=== PATIENT | female | born 1955 | race African-American/Black ===

== ENCOUNTER 2016-11-22 23:31 | Emergency (ER) | payer OTHER ==
[~2016-11-22 23:31] MED LIST: ACET500CAP PO; ALLEGRA180 PO; AMB10 PO; ASAB PO; BEN25 PO; CRESTOR10 PO; FIBERCON PO; FISH-EPA1000 MG PO; FLONASE NAS; HYZAAR1 TAB PO; LIPITOR20 PO; LOP50 PO; MULTIPLE VIT PO; NEUR100 PO; NORCO1 TA1 PO; PAXIL CR25 MG PO; PEP20 PO; TYLENOL PM PO; ULTRAM50 PO; V5 PO; VASERETIC5 PO; VENTOLIN HFA INH; VICODINTAB PO; VIT D; VITAMIN D31000 UNIT PO; VITAMIN D400 UNI1 PO; VITD PO; ZOL100 PO
== END 2016-11-23 00:55 | disposition home or self-care (01) ==
LOC: ER 23:31
DX: M25.552 Pain in left hip (principal); I50.9 Heart failure, unspecified; Z95.0 Presence of cardiac pacemaker; Z79.82 Long term (current) use of aspirin; Z79.899 Other long term (current) drug therapy
CPT/HCPCS: 72170; 73502-LT; 96372; 99283; A9270-GY